=== PATIENT | female | born 1995 | race Caucasian/White ===

== ENCOUNTER 2018-01-25 11:23 | Emergency (ER) | payer MEDICAID ==
[~2018-01-25] VITALS: Ht 160 cm; Wt 69.9 kg
[2018-01-25 11:29] VITALS: Ht 160 cm; Wt 69.9 kg
[2018-01-25 12:04] LABS: BASOPHIL % 0.5 % (0-2); PLATELET COUNT 323 x10^3mcL (130-400); RED CELL DISTRIBUTION WIDTH 12.5 % (11.5-14.5)
[2018-01-25 12:13] LABS: CALCIUM 9.3 mg/dL (8.5-10.1); CARBON DIOXIDE 26.7 mmol/L (21-32); CHLORIDE SERUM 103 mmol/L (98-107); CREATININE SERUM 0.6 mg/dL (0.6-1.0); GFR1 > 60 mL/min; GLUCOSE SERUM 87 mg/dL (74-106); POTASSIUM SERUM 4.4 mmol/L (3.5-5.1); SODIUM SERUM 140 mmol/L (136-145)
[2018-01-25 12:20] LABS: ALBUMIN 4.2 g/dL (3.4-5.0); ALKALINE PHOSPHATASE 91 U/L (46-116); ALT/SGPT 23 U/L (14-59); AST/SGOT 18 U/L (15-37); BILIRUBIN TOTAL 1.75 mg/dL (0.20-1.00); TOTAL PROTEIN, SERUM 8.2 g/dL (6.4-8.2)
[2018-01-25 14:24] LABS: AMPHETAMINE QUAL UR NONE DETECTED (NEG <=1000)
[2018-01-25] MEDS ORDERED: XANAX0.25 MG (22:01)
[2018-01-25 23:28] VITALS: BP 154/78
== END 2018-01-25 23:28 | disposition short-term general hospital (02) ==
LOC: ED 11:23 → DU 21:55 → ED 21:55
PROVIDERS: Emergency Medicine
DX: F32.9 Major depressive disorder, single episode, unspecified (principal); R45.851 Suicidal ideations; F41.9 Anxiety disorder, unspecified; Z86.59 Personal history of other mental and behavioral disorders
CPT/HCPCS: 36415; 83880; G0480

== ENCOUNTER 2018-06-11 21:59 | Emergency (ER) | payer MEDICAID ==
[~2018-06-11] VITALS: Ht 160 cm; Wt 70.0 kg
[~2018-06-11 21:59] MED LIST: XANAX0.25 MG
[2018-06-11 22:06] VITALS: Ht 160 cm; Wt 70.0 kg
[2018-06-11 22:55] VITALS: BP 136/89
== END 2018-06-11 22:55 | disposition home or self-care (01) ==
LOC: ED 21:59
DX: S80.862A Insect bite (nonvenomous), left lower leg, initial encounter (principal); S80.861A Insect bite (nonvenomous), right lower leg, initial encounter; T78.49XA Other allergy, initial encounter; J45.909 Unspecified asthma, uncomplicated; W57.XXXA Bitten or stung by nonvenomous insect and other nonvenomous arthropods, initial encounter; Y93.89 Activity, other specified; Y92.89 Other specified places as the place of occurrence of the external cause; Y99.8 Other external cause status